=== PATIENT | male | born 1965 | race Caucasian/White ===

== ENCOUNTER → 2023-06-14 06:24 | Outpatient (REF) | payer BC, SELFPAY ==
[2023-06-14 07:05] LABS: % Basophils 0.5 % (0-2); % Eosinophils 1.1 % (0-6); % Immature Granulocytes 0.4 % (0-0.5); % Lymphocytes 23.4 % (20.5-51.1); % Monocytes 5.8 % (1.7-9.3); % Neutrophils 68.8 % (42.2-75.2); Absolute Basophils 0.1 10^3/uL (0-0.2); Absolute Eosinophils 0.1 10^3/uL (0-0.7); Absolute Lymphocytes 2.5 10^3/uL (1.2-3.4); Absolute Monocytes 0.6 10^3/uL (0.1-0.6); Absolute Neutrophils 7.2 10^3/uL (1.4-6.5); Hematocrit 45.3 % (39.0-52.0); Hemoglobin 15.7 g/dL (13.0-18.0); Mean Corp Hgb Conc. 34.7 g/dL (33.0-37.0); Mean Corpuscular Volume 89.5 fL (80.0-94.0); Mean Platelet Volume 9.1 fL (7.4-10.4); Nucleated Red Blood Cells % 0 % (-); Platelet Count 254 10^3/uL (130-400); Red Blood Cell Count 5.06 10^6/uL (4.70-6.10); Red Cell Dist. Width 12.8 % (11.5-14.5); White Blood Cell Count 10.5 10^3/uL (4.8-10.8)
[2023-06-14 07:27] LABS: ALT (SGPT) 22 U/L (0-50); AST (SGOT) 29 U/L (17-59); Albumin 4.3 g/dl (3.5-5.0); Alkaline Phosphatase 97 U/L (38-126); Blood Urea Nitrogen 16 mg/dl (9-20); Calcium 9.6 mg/dl (8.4-10.2); Carbon Dioxide 26 mmol/L (22-30); Chloride 107 mmol/L (98-107); Glucose 99 mg/dl (70-99); HDL Cholesterol 42 mg/dl; LDL Cholesterol, Calculated 129 mg/dl; Potassium 4.4 mmol/L (3.5-5.1); Sodium 136 mmol/L (135-145); Total Cholesterol 191 mg/dl (50-199); Total Protein 7.1 g/dl (6.3-8.2); Triglyceride 104 mg/dl (10-149); Very Low Density Lipoprotein 20 mg/dl (0-30); eGFR > 60.00
[2023-06-14 07:57] LABS: TSH 1.79 uIU/ml (0.47-4.68)
[2023-06-16 01:41] LABS: PSA Total 1.2 ng/mL (0.0-4.0)
== END ==
LOC: REG 06:24
PROVIDERS: ATTENDING PHYSICIAN Internal Medicine
DX: Z00.00 Encounter for general adult medical examination without abnormal findings (principal); Z12.5 Encounter for screening for malignant neoplasm of prostate; E78.5 Hyperlipidemia, unspecified; R53.83 Other fatigue
CPT/HCPCS: 36415; 80053; 80061; 84153; 84154; 84443; 85025

== ENCOUNTER → 2024-07-15 06:24 | Outpatient (REF) | payer BC, SELFPAY ==
[2024-07-15 07:00] LABS: % Basophils 0.7 % (0-2); % Eosinophils 1.2 % (0-6); % Immature Granulocytes 0.3 % (0-0.5); % Lymphocytes 21.9 % (20.5-51.1); % Monocytes 5.5 % (1.7-9.3); % Neutrophils 70.4 % (42.2-75.2); Absolute Basophils 0.1 10^3/uL (0-0.2); Absolute Eosinophils 0.1 10^3/uL (0-0.7); Absolute Lymphocytes 2.2 10^3/uL (1.2-3.4); Absolute Monocytes 0.6 10^3/uL (0.1-0.6); Absolute Neutrophils 7.2 10^3/uL (1.4-6.5); Hematocrit 44.8 % (39.0-52.0); Hemoglobin 15.4 g/dL (13.0-18.0); Mean Corp Hgb Conc. 34.4 g/dL (33.0-37.0); Mean Corpuscular Hgb 31.1 pg (27.0-31.0); Mean Corpuscular Volume 90.5 fL (80.0-94.0); Mean Platelet Volume 9.5 fL (7.4-10.4); Nucleated Red Blood Cells % 0 % (-); Platelet Count 232 10^3/uL (130-400); Red Blood Cell Count 4.95 10^6/uL (4.70-6.10); Red Cell Dist. Width 12.7 % (11.5-14.5); White Blood Cell Count 10.2 10^3/uL (4.8-10.8)
[2024-07-15 07:22] LABS: ALT (SGPT) 21 U/L (0-50); AST (SGOT) 24 U/L (17-59); Albumin 3.9 g/dl (3.5-5.0); Alkaline Phosphatase 92 U/L (38-126); Blood Urea Nitrogen 14 mg/dl (9-20); Calcium 9.2 mg/dl (8.4-10.2); Carbon Dioxide 30 mmol/L (22-30); Chloride 106 mmol/L (98-107); Glucose 95 mg/dl (70-99); HDL Cholesterol 40 mg/dl; LDL Cholesterol, Calculated 131 mg/dl; Potassium 4.2 mmol/L (3.5-5.1); Sodium 142 mmol/L (135-145); Total Bilirubin 1.1 mg/dl (0.2-1.3); Total Cholesterol 194 mg/dl (50-199); Total Protein 6.8 g/dl (6.3-8.2); Triglyceride 117 mg/dl (10-149); Very Low Density Lipoprotein 23 mg/dl (0-30); eGFR > 60.00
[2024-07-15 07:54] LABS: PSA, Total - Screen 1.39 ng/ml (0.0-4.0); TSH 2.03 uIU/ml (0.47-4.68)
== END ==
LOC: REG 06:24
PROVIDERS: ATTENDING PHYSICIAN Internal Medicine
DX: Z00.00 Encounter for general adult medical examination without abnormal findings (principal); E78.5 Hyperlipidemia, unspecified; N20.0 Calculus of kidney; R00.2 Palpitations; Z12.5 Encounter for screening for malignant neoplasm of prostate
CPT/HCPCS: 36415; 80053; 80061; 84443; 85025; G0103

== ENCOUNTER → 2024-09-02 14:31 | Outpatient (REF) | payer BC, SELFPAY | LOC: RCS 14:31 | PROVIDERS: ATTENDING PHYSICIAN Internal Medicine Cardiovascular Disease; FAMILY PHYSICIAN Internal Medicine | DX: R00.2 Palpitations (principal); I47.9 Paroxysmal tachycardia, unspecified; E78.5 Hyperlipidemia, unspecified | CPT/HCPCS: 93306 ==

== ENCOUNTER → 2025-01-09 10:46 | Outpatient (REF) | payer BC, SELFPAY | LOC: HWRCS 10:46 | PROVIDERS: ATTENDING PHYSICIAN Internal Medicine Cardiovascular Disease; FAMILY PHYSICIAN Internal Medicine | DX: R00.2 Palpitations (principal); I47.9 Paroxysmal tachycardia, unspecified; E78.5 Hyperlipidemia, unspecified; I48.0 Paroxysmal atrial fibrillation | CPT/HCPCS: 78452; 93017; A9500; J2785 ==

== ENCOUNTER 2025-01-26 07:44 | Day surgery (SDC) | payer BC, SELFPAY ==
[2025-01-19 06:31] VITALS: BMI 25.1
[2025-01-19 07:12] LABS: Hematocrit 46.1 % (39.0-52.0); Hemoglobin 15.6 g/dL (13.0-18.0); Mean Corp Hgb Conc. 33.8 g/dL (33.0-37.0); Mean Corpuscular Volume 91.7 fL (80.0-94.0); Nucleated Red Blood Cells % 0 % (-); Platelet Count 235 10^3/uL (130-400); Red Cell Dist. Width 12.6 % (11.5-14.5)
[2025-01-19 07:29] LABS: ALT (SGPT) 22 U/L (0-50); AST (SGOT) 25 U/L (17-59); Albumin 4.4 g/dl (3.5-5.0); Alkaline Phosphatase 91 U/L (38-126); Blood Urea Nitrogen 18 mg/dl (9-20); Calcium 9.3 mg/dl (8.4-10.2); Carbon Dioxide 29 mmol/L (22-30); Chloride 106 mmol/L (98-107); Estimated Creatinine Clearance 78 ml/min; Glucose 98 mg/dl (70-99); Potassium 4.5 mmol/L (3.5-5.1); Sodium 141 mmol/L (135-145); Total Protein 7.2 g/dl (6.3-8.2); eGFR > 60.00
[2025-01-26] VITALS (9 sets, daily range): BP systolic 96–149; BP diastolic 76–93; BMI 25.0
--- NOTE | 2025-01-26 11:43 | ITS.CL.ABL ---
Operating Engineer Apprentice - Ablation
Ablation
Procedure Report:
AFIB ablation:
Mr. Zamorano is a very pleasant 59 yr old gentleman with medical history significant for symptomatic paroxysmal atrial fibrillation is here in the EP lab for atrial fibrillation ablation
Date of Procedure:
01/26/2025
Indications:
Symptomatic paroxysmal atrial fibrillation
Pre-Operative Diagnosis:
Paroxysmal atrial fibrillation
Post-Operative Diagnosis:
Paroxysmal atrial fibrillation
Procedure Performed:
Atrial fibrillation ablation with wide area circumferential ablation (WACA) approach for pulmonary vein isolation
Performing Physician:
Kaur Gray MD
Assistants:
EP staff
Anesthesia:
See anesthesia records
Detailed Description of the Procedure:
Written informed consent was obtained from the patient after a full explanation of the risks and benefits of the procedure including the risks of sedation and anesthesia.
The patient was brought to the electrophysiology laboratory in stable condition in fasting state. Continuous electrocardiographic and hemodynamic monitoring was initiated.
The initial rhythm was sinus rhythm.
The procedure site was meticulously prepared with surgical scrub and allowed to dry with no pooling. Sterile draping was applied to cover the procedure site. The image intensifier was draped with sterile bag and positioned over the patient. After
infusion of local anesthetic, vascular access was obtained under ultrasound guidance and sheaths were placed over guide wire as detailed below.
The images of the ultrasound of the femoral vessels were stored in patient chart.
Sheath and Catheter Placement:
In the right femoral vein, a 10-Angolan sheath was placed under ultrasound guidance for use during the ablation procedure. In the right femoral vein, another 9-Fr sheath was placed for use during intracardiac echo procedure.
The sheaths were upgraded as needed during the case. Intracardiac catheters were positioned using direct fluoroscopic guidance. ICE catheter was placed in RA. The following catheters / sheaths were placed
Sheaths:
? Agilis sheath in right femoral vein upgraded from 9Fr in right femoral vein
? 9Fr in right femoral vein
Catheters:
? The Affera Sphere 9 catheter -bidirectional D/F - at locations of HRA, LA and LV.
? ICE catheter -AccuNav - at locations of RA, SVC, and RV.
Heparin was initiated after the access was obtained.
Intracardiac ECHO:
An 8-Angolan AcuNav intracardiac ECHO (ICE) probe was advanced through the 9-Angolan sheath in the left femoral vein into the right atrium under fluoroscopic and ICE ultrasound image guidance and a baseline ECHO study was performed. The left atrial
size was mildly dilated. There was trace tricuspid regurgitation. The aortic valve was grossly normal. There was normal left ventricular size and function. There is a trace pericardial effusion. The PHILL has baseline normal velocities. The pulmonary
had good flow identified.
During the procedure, ICE was used for monitoring of complications, guidance of trans-septal puncture, monitor the catheter position and tracking ablation lesions. No change in the pericardial space noted throughout the procedure.
Trans-septal Puncture:
Heparin was initiated and infused to maintain appropriate ACT. A J-tipped guidewire was advanced through into the superior vena cava under fluoroscopic and ICE guidance. The Agilis sheath with BRK needle was advanced into the superior vena cava over
the guidewire. The apparatus was withdrawn until it was in contact with the fossa ovalis. The position was adjusted based on fluoroscopy and ultrasound images from ICE. Under fluoroscopic, hemodynamic and ICE ultrasound guidance, left atrium was
cannulated by advancing the needle. Once atrial septum was cannulated, the needle was pulled back and the guide wire was advanced through the needle into the left atrium. The guide wire was advanced into the left superior pulmonary vein. Both the
sheath and the dilator was advanced into the left atrium. The dilator with the needle was withdrawn. Blood was aspirated from the Agilis sheath and arterial blood confirmed. The sheath was flushed. Saline injection noted into the left atrium on ICE.
The waveform of the LA pressure was recorded. The mapping catheter was advanced in the Agilis sheath into the left pulmonary vein.
3D Electroanatomic Mapping:
Using the Sphere 9 Affera catheter advanced through Agilis sheath into the left atrium, an electroanatomic map (EAM) of the left atrium was created using [employer] mapping system with Prism-1 software. The map was used for localization of catheter
position and tacking of ablation lesions. The EAM of the left atrium showed a total of 4 PVs with a two left and two right sided pulmonary veins with all electrically connected to the body the LA. It showed no significant scar on the posterior wall
of the LA. The LA was dilated in size.
Following the EAM, preparation were made for ablation.
Ablation:
Ablation # 2: Pulmonary vein Isolation:
Glycopyrrolate 0.2 mg was given prior to the placement of ablation.
Pulsed field ablation was performed using an open irrigation, bidirectional, contact sensing, dual energy ablation catheter (Kiia sphere -9) by completing the circumferential lesions around the left and right pulmonary veins achieving pulmonary
vein isolation.
Confirmation of the PVI and bidirectional block:
Following achievement of entrance block at the pulmonary veins, pacing from the Sphere 9 affera catheter in each of the four veins at 20 milliamps for 4 milliseconds showed entrance and exit block.
The LA was mapped with [employer] mapping system with Prism-1 software in sinus rhythm confirming the line of block at the ablation lesions lines.
EP study:
Sinus Node Function: The sinus node functions are within acceptable normal range.
Atrioventricular David Function: Normal AV conduction noted with normal AV david conduction time.
Procedure End
ICE study was done again that showed no epicardial accumulation. No complications noted.
Following the completion of the EP study, catheters were removed. Protamine 40 mg was given at the end of the procedure and ACT was checked repeatedly. The sheaths were removed and hemostasis achieved with VASCADE and manual compression after
acceptable ACT is achieved.
Left atrial Pressure:
Mean LA pressure was 8 mmHg
Mean RA pressure was 6 mmHg
Estimated Blood loss:
<10 cc
Specimens Removed:
None.
Implants / Devices:
None
Urine output:
None
Packs / Drains/ Tubes:
None
Instrument / Sponge Count Correct:
Yes
Complications of the Procedure:
None
Condition of Patient at Time of Transfer:
Hemodynamically stable with no neurological or vascular compromise.
Summary:
? Successful atrial fibrillation ablation with circumferential bidirectional line of block at pulmonary vein antra (Pulmonary vein isolation)
Figures from the Procedure:
Figure 1: The electroanatomic mapping (EAM) of the left atrium with bipolar voltage (purple indicates normal electrical activity with red as no myocardial muscle electric activity indicating a line of block or scar.
[2025-01-26] MEDS: ANESTHETIC LOZENGE 1 LOZENGE PO (12:14)
--- NOTE | 2025-01-26 14:07 | W.PN.UPDATE ---
Update Note
Progress Note Update
Pt seen post PFA. Right groin with vascade closure, no ht/bleeding. OOB ambulating. Post EKG NSR 92, no acute changes. Resume eliquis tonight. Followup at [facility] as scheduled. Home today if groin site/tele remain stable.
[2025-01-27 08:07] LABS: ACT-LR - POC > 397 Seconds (116-155)
[2025-01-27 08:07] LABS: ACT-LR - POC > 397 Seconds (116-155)
== END 2025-01-26 14:29 | disposition home or self-care (01) ==
LOC: CATH 07:44
PROVIDERS: ATTENDING PHYSICIAN Internal Medicine Cardiovascular Disease; FAMILY PHYSICIAN Internal Medicine; REFERRING PHYSICIAN Internal Medicine Cardiovascular Disease
DX: I48.0 Paroxysmal atrial fibrillation (principal); Z79.01 Long term (current) use of anticoagulants; Z79.899 Other long term (current) drug therapy
CPT/HCPCS: C1733; C1769; C1894; C1766; C1892; C1759; 36415; 80053; 85025; 85347; 86850; 86900; 86901; 93005; 93656; C1760